=== PATIENT | female | born 1955 | race Caucasian/White ===

== ENCOUNTER → 2020-10-09 | Outpatient (CLI) | payer MEDICARE ==
[~2020-10-09] MED LIST: AUGMENTIN 875-1 EACH PO; FLAGYL500 MG PO; PERCOCET 5/325 T1 EA PO
== END ==
LOC: MAMO 08-27 10:00 → KOH-I 08-27 10:00 → EXRD 08-27 10:30 → MAMO 08-27 11:00 → EXRD 09:58
DX: Z12.31 Encounter for screening mammogram for malignant neoplasm of breast (principal); M81.0 Age-related osteoporosis without current pathological fracture; Z78.0 Asymptomatic menopausal state
CPT/HCPCS: 77063; 77067; 77080

== ENCOUNTER → 2021-08-24 | Outpatient (CLI) | payer MEDICARE | LOC: SLEEP 15:23 | DX: G47.33 Obstructive sleep apnea (adult) (pediatric) (principal) | CPT/HCPCS: 95810 ==

== ENCOUNTER → 2022-04-08 | Outpatient (CLI) | payer MEDICARE | LOC: MAMO 08:56 | DX: Z12.31 Encounter for screening mammogram for malignant neoplasm of breast (principal) | CPT/HCPCS: 77063; 77067 ==